=== PATIENT | male | born 1950 | race Caucasian/White ===

== ENCOUNTER 2019-01-09 18:14 | Emergency (ER) | payer MEDICARE, MEDICAID ==
[~2019-01-09] VITALS: Ht 188 cm; Wt 107.0 kg
[2019-01-09 18:16] VITALS: BP 116/66
--- NOTE | 2019-01-09 18:20 | NUR ---
PT TO ER BED 1 FROM [facility]
--- NOTE | 2019-01-09 18:20 | NUR ---
PRISCILLA FROM [facility] FOR RT GREAT TOE PAIN X1 MONTH. PT HAS HX OF GANGRENE TO TOE, SKIN TO TOE IS REDDENED, INFLAMMED, SCANT D/C NOTED, NO ACTIVE BLEEDING. +CMS TO RIGHT FOOT. PT PLACED ON FULL SLAB LIFTING ENGINEER. ER TO EVALUATE PT. PMH CIRROHOIS OF LIVER, MALIGNANT NEOPLASM OF LIVER, HEP. C, PORTAL VEIN THROMBOSIS, HTN, SCHIZO
[2019-01-09] MEDS ORDERED: LACT10SO1 PO (18:25)
[2019-01-09] MEDS ORDERED: SENN-73 PO (18:25)
[2019-01-09] MEDS ORDERED: OMEP10SU PO (18:25)
[2019-01-09] MEDS ORDERED: BACL10TA4 PO (18:30)
[2019-01-09] MEDS ORDERED: MYLANTA PO (18:30)
[2019-01-09] MEDS ORDERED: BISA-213 RC (18:30)
[2019-01-09] MEDS ORDERED: QUET400T PO (18:30)
[2019-01-09] MEDS ORDERED: HYDR2TAB6 PO (18:30)
[2019-01-09] MEDS ORDERED: CLON0.1T42 PO (18:33)
[2019-01-09] MEDS ORDERED: GABA400C PO (18:33)
[2019-01-09] MEDS ORDERED: AMLO5TAB PO (18:33)
[2019-01-09] MEDS ORDERED: LISI30TA6 PO (18:33)
--- NOTE | 2019-01-09 19:17 | NUR ---
TRANSFER OF CARE AND REPORT GIVEN BY SHELDON YO. PT AWAKE AND ALERT. VSS. WILL CONTINUE TO MONITOR.
--- NOTE | 2019-01-09 19:23 | NUR ---
XRAY AT BEDSIDE
--- NOTE | 2019-01-09 20:00 | NUR ---
ATTEMPTED TO INSERT IV, UNSUCCESSFUL AFTER 4 ATTEMPTS. BLENDER CONVEYOR OPERATOR MADE AWARE.
[2019-01-09 20:26] LABS: BASOPHILS # (AUTO) 0.1 K/uL (0.00-0.22); BASOPHILS % (AUTO) 1.9 % (0.0-2.0); EOSINOPHILS # (AUTO) 0.4 K/uL (0-0.4); EOSINOPHILS % (AUTO) 7.5 % (0.0-4.0); HEMATOCRIT 42.4 % (36-52); HEMOGLOBIN 14.2 g/dL (12.0-18.0); LYMPHOCYTES # (AUTO) 1.2 K/uL (2.0-11.5); LYMPHOCYTES % (AUTO) 26.1 % (20.5-51.1); MEAN CORPUSCULAR HEMOGLOBIN 32 pg (27-31); MEAN CORPUSCULAR HGB CONC 34 g/dL (33-37); MEAN CORPUSCULAR VOLUME 94.8 fL (80-94); MONOCYTES # (AUTO) 0.4 K/uL (0.8-1.0); MONOCYTES % (AUTO) 8.8 % (1.7-9.3); NEUTROPHILS # (AUTO) 2.7 K/uL (1.8-7.7); NEUTROPHILS % (AUTO) 55.7 % (42.2-75.2); PLATELET COUNT (AUTO) 187 K/uL (140-450); RED BLOOD CELL COUNT(AUTO) 4.48 MIL/uL (4.20-6.10); RED CELL DISTRIBUTION WIDTH 14.6 % (11.6-13.7); WHITE BLOOD COUNT (AUTO) 4.8 K/uL (4.8-10.8)
[2019-01-09 20:27] LABS: APPEARANCE,URINE CLEAR (CLEAR); BILIRUBIN,URINE NEGATIVE (NEGATIVE); BLOOD, URINE NEGATIVE (NEGATIVE); COLOR,URINE YELLOW (YELLOW); LEUKOCYTE ESTERASE ,URINE NEGATIVE (NEGATIVE); NITRITE, URINE POSITIVE (NEGATIVE); UGLUCOSE NEGATIVE (NEGATIVE)
[2019-01-09] MEDS: HALOPERIDOL IM 5 MG/ML VIAL IM ONE (20:38)
--- NOTE | 2019-01-09 20:38 | NUR ---
KILN BURNER HELPER AT BEDSIDE FOR IV INSERTION, PT REFUSED MORE IV INSERTION ATTEMPTS DESPITE EDUCATION OF POSSIBLE NEED FOR IV ANTIBIOTICS. PT BECAME AGITATED AND YELLING, PT REMOVED RFID SPECIALIST AND SPO2 MONITOR. DR CASTILLO MADE AWARE. ABLE TO CALM PT. ORDERED HALDOL IM NOT GIVEN.
[2019-01-09 20:39] LABS: BARBITURATE, URINE NEG. ng/ml (NEG <=200); BENZODIAZEPINE, URINE NEG. ng/mL (NEG <=200); CANNABINOID, URINE NEG. ng/mL (NEG <=50); COCAINE, URINE NEG. ng/mL (NEG <=300); OPIATE, URINE POS. ng/mL (NEG <=2000); PHENCYCLIDINE SCREEN,URINE NEG. ng/mL (NEG <=25)
[2019-01-09 20:42] LABS: ANION GAP 11.2 (8-16); CARBON DIOXIDE 28.1 mmol/L (21-32); POTASSIUM 4.3 mmol/L (3.5-5.1)
[2019-01-09 20:52] LABS: ALBUMIN 3.4 g/dL (3.4-5.0); TOTAL BILIRUBIN 0.4 mg/dL (0.0-1.0)
[2019-01-09] MEDS ORDERED: HYDROcodone/APAP 5/325 MG 1 TAB TAB PO ONE (20:55)
--- NOTE | 2019-01-09 20:55 | NUR ---
PT C/O OF RIGHT BIG TOE PAIN. PAIN LEVEL 8/10, THROBBING. ERMD NOTIFIED.
[2019-01-09] MEDS ORDERED: PIPERACILLIN/TAZOBACTAM 3.375 GM in DEXTROSE 5% 50 ML IV ONE (21:30)
--- NOTE | 2019-01-09 22:20 | NUR ---
PT REFUSED IV. ERMD NOTIFIED.
[2019-01-09] MEDS ORDERED: HALOPERIDOL IM 5 MG/ML VIAL ONE (22:39)
--- NOTE | 2019-01-09 23:07 | NUR ---
DR CASTILLO AT BEDSIDE FOR US GUIDED PIV INSERTION, SUCCESSFUL ATTEMPT 20G ON LAC, PT TOLERATED WELL.
--- NOTE | 2019-01-09 23:14 | NUR ---
PT TO BE TRANSFERED TO [facility] WITH DR. SPENCE, [facility] ROOM [id number]. ETA 30 MIN. PHONE
[2019-01-09] MEDS ORDERED: PIPERACILLIN/TAZOBACTAM 3.375 GM VIAL IV ONE (23:17)
--- NOTE | 2019-01-09 23:25 | NUR ---
REPORT GIVEN TO SHELDON BEST
[2019-01-09 23:40] VITALS: BP 131/63
--- NOTE | 2019-01-09 23:50 | NUR ---
Patient to be transferred to [facility]. Is being transferred due to CELLULITIS OF THE RIGHT BIG TOE. Receiving facility has accepting physician and available space. ER physician has signed transfer form. Patient or responsible constitution party has agreed to transfer and signed form. Patient belongings inventoried and will be sent with patient. Copy of nursing notes, lab reports, EKG, Physicians Orders and X-rays to be sent with patient. Report called to SHELDON BEST at receiving facility. ambulance service has been called for transfer.
== END 2019-01-09 23:40 | disposition short-term general hospital (02) ==
LOC: MED 18:14
DX: L03.031 Cellulitis of right toe (principal); F20.9 Schizophrenia, unspecified; Z98.890 Other specified postprocedural states; Z79.82 Long term (current) use of aspirin; Z88.5 Allergy status to narcotic agent; Z88.8 Allergy status to other drugs, medicaments and biological substances; Z79.899 Other long term (current) drug therapy
CPT/HCPCS: 36415; 73660; 80053; 80305; 81003; 83605; 85025; 85651; 86140; 87040; 87086; 96365; 99285; G0482; J2543; Q0092; 99284; J1630